=== PATIENT | female | born 2000 | race Asian ===

== ENCOUNTER → 2021-12-16 13:57 | Outpatient (CLI) | payer OTHER, SELFPAY ==
--- NOTE | 2021-12-16 14:40 | DIET.CONS ---
Dietary Consultation Note Assessment: 21y [address] visit for help losing weight. Pt decided to start working on getting healthy during the early pandemic in 2020. Pt started at 220# got down to 200# is currently 195-200# and has goal of 175#. Pt has maintained 20# weight loss x1y. Pt does at home pilates, some light weights HIIT, sometimes yoga since mid-2019 an hour 4-5 days per week. Usual Day: sometimes skips breakfast often matcha latte with oatmilk does workout eggs and toast or yogurt ([place], sometimes low fat) with mag and granola sometimes snacks- popcorns plays with dog and cleans up house, does homework Dinner (5-6pm): whatever mom cooks- chicken, veggies, seafood, rice sometimes skips rice drink water or oatmilk menstrual cravings- sweet, salty, spicy, dark chocolates- ice cream and chocolate, chips minimal, spicy chips Ht: 5'8 Wt: 200# BMI: 30.4 RD Impression: Pt has made excellent healthy changes as far as eating nutrient rich diet and participating in regular physical activity. Pt can't cut much from her diet at this point without negative health consequences but could increase cardiovascular output to help with further weight loss to get through this weight plateau. Pt has baseline good habits and could intersperse spurts of efforts to get to her weight and fitness goal. Nutrition Diagnosis: obesity r/t inadequate cardiovascular exercise aeb BMI 30.4, pt reports not always having increased heart rate when working out. Interventions: 1. [facility] pt do 1-2 week cycles of HIIT workouts to increase lean body mass while exerting enough energy to increase heart rate to burn fat stores. 2. Introduced pt to fasting mimicking diet. Pt is an adult desiring BMI in 26 range which is healthy for her stature. No hx disordered eating or meds for heart or diabetes. Pt practicing some intermittent fasting at this time. Pt instructed in FMD cycling of 5 consecutive days per month, once monthly for three months after which she could continue quarterly as desired. Monitoring/Evaluations: f/u in 8w to assess progress and barriers. Electronically Signed by: Shala Miller 12/16/21 14:40 Clinical Dietitian [address] [id number]
== END ==
PROVIDERS: PCP Family Medicine; Referring Provider Family Medicine; Visit Provider Family Medicine
DX: E66.9 Obesity, unspecified (principal); Z68.30 Body mass index [BMI] 30.0-30.9, adult
CPT/HCPCS: 97802

== ENCOUNTER → 2022-02-20 13:22 | Outpatient (CLI) | payer OTHER, SELFPAY ==
--- NOTE | 2022-02-20 13:58 | DIET.PN1 ---
Dietary Progress Note 21y [address] f/u via telehealth for weight management. Pt agrees to telehealth format, pt in her home bedroom, RD in hospital office. Current Weight: 190# (-10# in 8w) Pt attributes weight loss to focus on portion sizes and upgraded workouts. Really noticing how clothes are fitting differently. Last time at 190# in HS, 9th grade. Pt looks forward to going outside with dog this summer to get more activity. Pts dad seeing RD for help with preDM, pt likes helping him find better snacks and beverages. Enjoys cooking healthy meals with her family. F/u scheduled for late May for accountability check in as well as to plan for physical activity and food during the changing season. Electronically Signed by: Shala Miller 02/20/22 13:58 Clinical Dietitian [address] [id number]
== END ==
PROVIDERS: PCP Family Medicine; Referring Provider Family Medicine; Visit Provider Family Medicine
DX: Z71.3 Dietary counseling and surveillance (principal)
CPT/HCPCS: 97803

== ENCOUNTER → 2022-06-05 14:08 | Outpatient (CLI) | payer OTHER, SELFPAY ==
--- NOTE | 2022-06-05 14:10 | DIET.OUTPTC ---
Dietary Outpatient Consultation Note Consultation Date: 06/05/2022 Pt in her home office, RD in hospital office, pt agrees to telehealth video visit using [employer] platform. 22y F [address] RD visit via telehealth for follow up to weight management. Pt is maintaining her 190# weight since February but has not lost more. Pt has lost a total of 30# and is maintaining. Usual Day: skips breakfast or does wheat or white bread c 1-2 eggs c bit of salt c water or matcha or fruit smoothie does workout (3x/w HIIT-30 minutes) other days per week does stretching and some walking Lunch: leftovers with fruit Dinner: cooks with dad- [place] pork stir ernst and rice, other foods Pt reports her mom started walking 30min daily for HTN. [place] [employer] [facility] [place] this [place]. Pt will be starting in person classes over winter and desires f/u at that time to support the change in routine to ensure continued weight management and loss efforts. Interventions: 1. Pt will start walking 15-30min per day to spur additional 5-10# weight loss trying to walk with her mom for accountability for them both. f/u in 4mo to assess progress and problem solve barriers. Electronically Signed by: Shala Miller 06/05/22 14:10 Clinical Dietitian [address] [id number]
== END ==
PROVIDERS: PCP Family Medicine; Referring Provider Family Medicine; Visit Provider Family Medicine
DX: Z71.3 Dietary counseling and surveillance (principal)
CPT/HCPCS: 97803

== ENCOUNTER → 2022-07-11 09:01 | Outpatient (CLI) | payer OTHER, SELFPAY | PROVIDERS: PCP Family Medicine; Visit Provider Nurse Practitioner Critical Care Medicine | DX: J02.9 Acute pharyngitis, unspecified (principal) | CPT/HCPCS: 87070 ==

== ENCOUNTER → 2022-10-28 17:04 | Outpatient (CLI) | payer OTHER, SELFPAY ==
--- NOTE | 2022-10-28 17:16 | DIET.OUTPTC ---
Dietary Outpatient Consultation Note Consultation Date: 10/28/2022 Pt at her home, RD in hospital office. Pt agrees to telehealth visit using [employer] alyssa. 22y F attending RD f/u via telehealth for weight management. Pt able to maintain 190# weight over 6mo. She feels her eating and exercise are in a groove. Pt feels she could benefit from increased intake vegetables as she is eating adequate fruit but not veggies. Collaborated c pt on ways to increase veggie intake. Pts mom meal plans, recc pt collaborate c mom on adding veggie sides or modifying recipes. Discussed intake beans for fiber and protein. Suggested increasing onions, garlic, mike, peppers as low cost flavor enhancers, technically veggies. Pt thankful for support of RD for past year. Pt feeling confident moving forward on own. Pt will request f/u prn in future. Electronically Signed by: Shala Miller 10/28/22 17:[address] Clinical Dietitian [address] [address]
== END ==
PROVIDERS: PCP Family Medicine; Referring Provider Family Medicine; Visit Provider Family Medicine
DX: Z71.3 Dietary counseling and surveillance (principal)
CPT/HCPCS: 97803